=== PATIENT | male | born 1980 | race Caucasian/White ===

== ENCOUNTER 2022-10-28 13:59 | Emergency (ER) | payer MEDICARE, MEDICAID ==
[2022-10-28] MEDS ORDERED: Acetaminophen 325 MG Tab PO ONE (15:16)
[2022-10-28 16:05] LABS: ESTIMATED GFR 109 mL/min (>60)
[2022-10-28] MEDS: Sodium Chloride 0.9% 50 ML IV SCH ×2 (16:44→16:57)
[2022-10-28] MEDS: Iopamidol 612 MG/ML 100 ML Bottle IV SCH ×2 (16:45→16:57)
== END 2022-10-28 18:55 ==
LOC: JP.ED 13:59
DX: S70.02XA Contusion of left hip, initial encounter (principal); M24.552 Contracture, left hip; R29.6 Repeated falls; E66.9 Obesity, unspecified; Z79.82 Long term (current) use of aspirin; Z68.43 Body mass index [BMI] 50.0-59.9, adult
CPT/HCPCS: 36415; 73080; 73502; 73562; 74177; 80053; 81001; 83605; 84145; 85025; 99284; A9270; J3490; Q9967

== ENCOUNTER 2022-11-06 19:39 | Emergency (ER) | payer MEDICARE, MEDICAID | END 2022-11-06 21:24 | LOC: JP.ED 19:39 | DX: R53.1 Weakness (principal); S80.12XA Contusion of left lower leg, initial encounter; E66.9 Obesity, unspecified; R29.6 Repeated falls; Z79.82 Long term (current) use of aspirin; Z68.24 Body mass index [BMI] 24.0-24.9, adult | CPT/HCPCS: 36415; 70450; 85025; 99285 ==

== ENCOUNTER 2023-10-07 22:04 | Emergency (ER) | payer MEDICARE, MEDICAID ==
[2023-10-07 22:20] LABS: BASOPHILS ABSOLUTE AUTO 0.08 K/uL (0.00-0.10); BASOPHILS PERCENT AUTO 1.2 % (0.1-1.3); EOSINOPHILS ABSOLUTE AUTO 0.33 K/uL (0.00-0.40); EOSINOPHILS PERCENT AUTO 4.7 % (0.0-5.4); HEMATOCRIT 43.9 % (38.4-49.7); HEMOGLOBIN 15.1 g/dL (12.9-16.9); IMMATURE GRAN ABSOLUTE AUTO 0.02 K/uL (0.00-0.23); IMMATURE GRAN PERCENT AUTO 0.3 % (0.0-0.7); LYMPHOCYTES ABSOLUTE AUTO 2.95 K/uL (0.8-3.3); LYMPHOCYTES PERCENT AUTO 42.4 % (11.4-47.7); MEAN CORPUSCULAR HEMOGLOBIN 30.4 pg (31.6-35.5); MEAN CORPUSCULAR HGB CONC 34.4 g/dL (31.6-35.5); MEAN CORPUSCULAR VOLUME 88.3 fL (81.4-99.0); MONOCYTES PERCENT AUTO 7.2 % (3.3-12.6); NEUTROPHILS ABSOLUTE AUTO 3.07 K/uL (1.0-7.6); NEUTROPHILS PERCENT AUTO 44.2 % (40.0-78.1); PLATELET COUNT,PLT 203 K/uL (130-375); RED BLOOD CELL COUNT 4.97 M/uL (4.14-5.76)
[2023-10-07 22:40] LABS: ALANINE AMINOTRANSFERASE,ALT 10 U/L (12-78); ALBUMIN 3.6 g/dL (3.4-5.0); ALKALINE PHOSPHATASE 72 U/L (46-116); ASPARTATE AMNIOTRANSFERASE,AST 16 U/L (15-37); BILIRUBIN TOTAL 0.4 mg/dL (0.2-1.0); BLOOD UREA NITROGEN,BUN 18 mg/dL (7-18); CALCIUM 8.9 mg/dL (8.5-10.1); CARBON DIOXIDE,CO2 27 mmol/L (21-32); CHLORIDE,CL 101 mmol/L (100-108); ESTIMATED GFR 96 mL/min (>60); GLUCOSE RANDOM 122 mg/dL (74-106); POTASSIUM,K 3.5 mmol/L (3.6-5.2); PROTEIN TOTAL,TP 7.1 g/dL (6.4-8.2); SODIUM,NA 139 mmol/L (140-148)
[2023-10-07 22:46] LABS: ANION GAP 14.5 mmol/L (5.0-14.0)
[2023-10-07 23:44] LABS: APPEARANCE,URINE CLEAR (CLEAR); BILIRUBIN,URINE NEGATIVE (NEGATIVE); COLOR,URINE YELLOW (YELLOW); GLUCOSE,URINE NEGATIVE (NEGATIVE); KETONES,URINE NEGATIVE (NEGATIVE); LEUKOCYTE ESTERASE,URINE NEGATIVE (NEGATIVE); NITRITE,URINE NEGATIVE (NEGATIVE); OCCULT BLOOD,URINE NEGATIVE (NEGATIVE); PH,URINE 6.5 (5.0-8.0); PROTEIN,URINE 30 mg/dL (NEGATIVE); UROBILINOGEN,URINE 0.2 EU/dL (0.2-1.0)
[2023-10-07 23:54] LABS: AMORPHOUS SEDIMENT,URINE NOT SEEN; BACTERIA,URINE FEW; EPITHELIAL CELLS,URINE RARE; MUCUS,URINE NOT SEEN; RBC,URINE 0-5 (0-5); WBC,URINE 0-5 (0-5)
== END 2023-10-08 08:43 | disposition home or self-care (01) ==
LOC: JP.ED 22:04
DX: T17.208A Unspecified foreign body in pharynx causing other injury, initial encounter (principal); Z79.899 Other long term (current) drug therapy; Z79.82 Long term (current) use of aspirin
CPT/HCPCS: 36415; 80053; 81001; 85025; 99283; 99284

== ENCOUNTER 2023-11-15 20:42 | Inpatient (IN) | payer MEDICARE, MEDICAID ==
[2023-11-15 21:23] LABS: WHITE BLOOD CELL COUNT,WBC 10.8 K/uL (3.2-11.0)
[2023-11-15 21:30] LABS: PLATELET COUNT,PLT 414 K/uL (130-375)
[2023-11-15 21:31] LABS: A/G RATIO 0.7 (1.2-2.2); ALANINE AMINOTRANSFERASE,ALT 24 U/L (12-78); ALBUMIN 3.2 g/dL (3.4-5.0); ALKALINE PHOSPHATASE 72 U/L (46-116); ASPARTATE AMNIOTRANSFERASE,AST 17 U/L (15-37); BILIRUBIN TOTAL 0.4 mg/dL (0.2-1.0); BLOOD UREA NITROGEN,BUN 28 mg/dL (7-18); C-REACTIVE PROTEIN 6.72 mg/dL (<0.50); CALCIUM 9.2 mg/dL (8.5-10.1); CARBON DIOXIDE,CO2 28 mmol/L (21-32); CHLORIDE,CL 99 mmol/L (100-108); CREATININE 0.9 mg/dL (0.8-1.3); EST CRCL DRUG DOSING (CG) 115.43 mL/min; ESTIMATED GFR 109 mL/min (>60); GLUCOSE RANDOM 134 mg/dL (74-106); POTASSIUM,K 4.6 mmol/L (3.6-5.2); PROTEIN TOTAL,TP 8.1 g/dL (6.4-8.2); SODIUM,NA 136 mmol/L (140-148)
[2023-11-15 21:36] LABS: EOSINOPHILS ABSOLUTE MAN 0.11 K/uL (0.00-0.40); EOSINOPHILS PERCENT MAN 1 % (2-4); LYMPHOCYTES ABSOLUTE MAN 1.08 K/uL (0.8-3.3); LYMPHOCYTES PERCENT MAN 10 % (24-44); MONOCYTES ABSOLUTE MAN 0.32 K/uL (0.20-0.90); MONOCYTES PERCENT MAN 3 % (2-6); NEUTROPHILS ABSOLUTE MAN 9.29 K/uL (1.0-7.6); SEG NEUTROPHILS PERCENT MAN 86 % (36-66)
[2023-11-15 21:37] LABS: ANION GAP 13.6 mmol/L (5.0-14.0)
[2023-11-15 22:44] LABS: CORONAVIRUS COVID-19 NAA NEGATIVE (NEGATIVE); INFLUENZA A NAA NEGATIVE (NEGATIVE); INFLUENZA B NAA NEGATIVE (NEGATIVE); RESPIRATORY SYNCYTIAL VIR NAA NEGATIVE (NEGATIVE)
[2023-11-15] MEDS: Sodium Chloride 0.9% 10 ML Syringe FLUSH PRN (22:50)
[2023-11-15] MEDS: Iopamidol 612 MG/ML 100 ML Bottle IV SCH (22:50)
[2023-11-15] MEDS: Sodium Chloride 0.9% 100 ML IV SCH (22:50)
[2023-11-15] MEDS: Sodium Chloride 0.9% 1,000 ML IV ONE (22:52)
[2023-11-15 22:54] LABS: LACTIC ACID 0.8 mmol/L (0.4-2.0)
[2023-11-15] MEDS ORDERED: Albuterol/Ipratropium 3.0-0.5 MG/3 ML Neb Soln NEB PRN (23:36)
[2023-11-15] MEDS ORDERED: guaiFENesin 100 MG/5 ML Soln 10 ML UD Cup PO PRN (23:36)
[2023-11-15] MEDS ORDERED: Ondansetron 4 MG/2 ML SDV IV PRN (23:36)
[2023-11-15] MEDS ORDERED: Docusate Sodium 100 MG Cap PO PRN (23:36)
[2023-11-15] MEDS ORDERED: Bisacodyl 5 MG Tab PO PRN (23:36)
[2023-11-15] MEDS ORDERED: Sodium Chloride 0.9% 1,000 ML IV SCH (23:36)
[2023-11-15] MEDS ORDERED: Ondansetron 4 MG Tab.DIS PO PRN (23:36)
[2023-11-15] MEDS ORDERED: Naloxone 0.4 MG/ML SDV IVPUSH PRN (23:36)
[2023-11-15] MEDS: Acetaminophen 1,000 MG in Premix Bag 1 BAG IV ONE (23:56)
[2023-11-16] MEDS: methylPREDNISolone Sodium Succinate 40 MG/1 ML SDV ONE (00:03)
[2023-11-16] MEDS: Sodium Chloride 0.9% 100 ML ONE (00:03)
[2023-11-16] MEDS: Meropenem 1 GM SDV ONE (00:03)
[2023-11-16] MEDS: methylPREDNISolone Sodium Succinate 40 MG/1 ML SDV IVPUSH SCH ×2 (00:05→05:49)
[2023-11-16] MEDS: Meropenem 1 GM in Sodium Chloride 0.9% 100 ML IV ONE (00:20)
[2023-11-16] MEDS: methylPREDNISolone Sodium Succinate 125 MG/2 ML SDV IM ONE (00:36)
[2023-11-16] MEDS: Azithromycin 500 MG in Sodium Chloride 0.9% 250 ML IV SCH (00:54)
[2023-11-16] MEDS: Pantoprazole 40 MG Vial IV SCH (00:57)
[2023-11-16] MEDS: methylPREDNISolone Sodium Succinate 125 MG/2 ML SDV IV ONE (00:57)
[2023-11-16 04:39] LABS: CREATININE 0.9 mg/dL (0.8-1.3); EST CRCL DRUG DOSING (CG) 119.6 mL/min; POTASSIUM,K 4.8 mmol/L (3.6-5.2)
[2023-11-16 05:20] LABS: ANION GAP 11.8 mmol/L (5.0-14.0)
[2023-11-16 05:28] LABS: HEMOGLOBIN 13.3 g/dL (12.9-16.9); PLATELET COUNT,PLT 390 K/uL (130-375); WHITE BLOOD CELL COUNT,WBC 10.2 K/uL (3.2-11.0)
[2023-11-16 05:30] LABS: LYMPHOCYTES ABSOLUTE MAN 0.31 K/uL (0.8-3.3); LYMPHOCYTES PERCENT MAN 3 % (24-44); MONOCYTES PERCENT MAN 2 % (2-6); NEUTROPHILS ABSOLUTE MAN 9.69 K/uL (1.0-7.6); SEG NEUTROPHILS PERCENT MAN 95 % (36-66)
[2023-11-16] MEDS: Escitalopram 10 MG Tab PO SCH (08:12)
[2023-11-16] MEDS: Baclofen 10 MG Tab PO SCH (08:12)
[2023-11-16] MEDS: Enoxaparin 40 MG/0.4 ML Syringe SUBCUT SCH (08:12)
[2023-11-16] MEDS: prednisoLONE Acetate 1% Ophth Susp 5 ML Bottle EYEBOTH SCH (08:13)
[2023-11-16] MEDS: Sennosides 8.6 MG Tab PO SCH (08:13)
[2023-11-16] MEDS: CYCLOSPORINE EYEBOTH SCH (11:41)
[2023-11-16] MEDS: CARBIDOPA LEVO PO SCH (11:41)
[2023-11-16] MEDS: Carbidopa/Levodopa 25-100 MG Tab PO SCH (13:42)
[2023-11-16] MEDS: cefTRIAXone 2 GM in Sodium Chloride 0.9% 50 ML IV SCH (14:52)
[2023-11-16] MEDS: IMIPRAMINE HCL 50 MG PO SCH (21:07)
[2023-11-16] MEDS: Azithromycin 250 MG Tab PO SCH (21:08)
[2023-11-16] MEDS: CLONAZEPAM 0.125 MG PO SCH (21:15)
[2023-11-17 05:04] LABS: HEMOGLOBIN 12.5 g/dL (12.9-16.9); WHITE BLOOD CELL COUNT,WBC 14.7 K/uL (3.2-11.0)
[2023-11-17] MEDS: Acetaminophen 325 MG Tab PO PRN (05:06)
[2023-11-17] MEDS: Morphine 2 MG/ML SYRINGE IVPUSH PRN (16:12)
[2023-11-17] MEDS: ClonazePAM 0.5 MG Tab PO SCH (20:56)
[2023-11-17] MEDS: oxyCODONE 5 MG Tab PO PRN (21:01)
[2023-11-18 06:09] LABS: HEMATOCRIT 35.3 % (38.4-49.7); MEAN CORPUSCULAR HEMOGLOBIN 29.6 pg (31.6-35.5); MEAN CORPUSCULAR VOLUME 86.9 fL (81.4-99.0); RED BLOOD CELL COUNT 4.06 M/uL (4.14-5.76); WHITE BLOOD CELL COUNT,WBC 12.3 K/uL (3.2-11.0)
[2023-11-18 06:21] LABS: CREATININE 0.8 mg/dL (0.8-1.3); EST CRCL DRUG DOSING (CG) 134.55 mL/min; POTASSIUM,K 3.9 mmol/L (3.6-5.2)
[2023-11-18 06:24] LABS: ANION GAP 7.9 mmol/L (5.0-14.0)
== END 2023-11-18 14:15 | disposition home or self-care (01) | DRG 178 ==
LOC: JP.ED 20:42 → JP.MS 23:13
PROVIDERS: ADMIT Internal Medicine; ATTEND Hospitalist
DX: J18.9 Pneumonia, unspecified organism (principal); J69.0 Pneumonitis due to inhalation of food and vomit; Z68.22 Body mass index [BMI] 22.0-22.9, adult; G21.8 Other secondary parkinsonism; H54.7 Unspecified visual loss; E66.9 Obesity, unspecified; R47.89 Other speech disturbances; G40.909 Epilepsy, unspecified, not intractable, without status epilepticus; Z79.899 Other long term (current) drug therapy; Z68.24 Body mass index [BMI] 24.0-24.9, adult; Z98.890 Other specified postprocedural states; Z87.898 Personal history of other specified conditions
CPT/HCPCS: 0241U; 36415; 71045; 74177; 80048; 80053; 82150; 83605; 83690; 85025; 85027; 86140; 87040; 99223; 99232; 99233; 99238; 99285; A9270-GY; C9113; J0131; J0456; J0696; J1650; J2185; J2270; J2920; J2930; J3490; J7030; J7050; Q9967

== ENCOUNTER 2024-03-27 11:54 | Emergency (ER) | payer MEDICARE, MEDICAID ==
[2024-03-27] MEDS ORDERED: Bacitracin Oint 1 GM U/D Packet TOP ONE (14:29)
== END 2024-03-27 15:27 ==
LOC: JP.ED 11:54
DX: S01.01XA Laceration without foreign body of scalp, initial encounter (principal); W19.XXXA Unspecified fall, initial encounter
CPT/HCPCS: 12001; 70450; 72125; 76377; 99284

== ENCOUNTER 2024-12-04 14:52 | Emergency (ER) | payer MEDICARE, MEDICAID | END 2024-12-04 18:05 | LOC: JP.ED 14:52 | DX: H11.32 Conjunctival hemorrhage, left eye (principal); E66.9 Obesity, unspecified; Z79.82 Long term (current) use of aspirin; Z79.899 Other long term (current) drug therapy; Z68.29 Body mass index [BMI] 29.0-29.9, adult | CPT/HCPCS: 99282; 99283 ==

== ENCOUNTER 2025-03-23 22:38 | Emergency (ER) | payer MEDICARE, MEDICAID | END 2025-03-24 01:07 | LOC: JP.ED 22:38 | DX: S02.2XXA Fracture of nasal bones, initial encounter for closed fracture (principal); S01.81XA Laceration without foreign body of other part of head, initial encounter; E66.9 Obesity, unspecified; Z86.16 Personal history of COVID-19; Z79.899 Other long term (current) drug therapy; Z68.24 Body mass index [BMI] 24.0-24.9, adult; Z79.82 Long term (current) use of aspirin; W18.30XA Fall on same level, unspecified, initial encounter | CPT/HCPCS: 70450; 70486; 99284; A9270 ==

== ENCOUNTER 2025-04-13 17:16 | Emergency (ER) | payer MEDICARE, MEDICAID ==
[2025-04-13] MEDS ORDERED: Lidocaine/Epineph/Tetracaine 3 ML Syringe TOP ONE (17:29)
[2025-04-13] MEDS: Lidocaine/Epineph/Tetracaine 3 ML Syringe TOP ONE (17:37)
== END 2025-04-13 18:30 | disposition home or self-care (01) ==
LOC: JP.ED 17:16
DX: S01.81XA Laceration without foreign body of other part of head, initial encounter (principal); E66.9 Obesity, unspecified; Z86.16 Personal history of COVID-19; Z79.82 Long term (current) use of aspirin; Z79.899 Other long term (current) drug therapy; W22.8XXA Striking against or struck by other objects, initial encounter
CPT/HCPCS: 12011; 99283; A9270; J2003